=== PATIENT | male | born 1990 | race Caucasian/White ===

== ENCOUNTER 2021-05-03 20:45 | Emergency (ER) | payer BC ==
[~2021-05-03] VITALS: Ht 177.8 cm; Wt 84.5 kg
[2021-05-03 23:32] VITALS: BP 130/84
== END 2021-05-04 | disposition home or self-care (01) ==
LOC: ED 20:45
DX: U07.1 COVID-19 (principal); J45.909 Unspecified asthma, uncomplicated; Z73.0 Burn-out
CPT/HCPCS: J7030

== ENCOUNTER → 2024-06-08 | Outpatient (REF) | payer BC | LOC: LAB 10:45 | DX: U07.1 COVID-19 (principal); J06.9 Acute upper respiratory infection, unspecified ==